=== PATIENT | female | born 1950 | race Two or more races ===

== ENCOUNTER 2021-01-26 19:51 | Emergency (ER) | payer OTHER ==
[~2021-01-26] VITALS: Ht 154.9 cm; Wt 62.6 kg
[2021-01-26] MEDS ORDERED: BACLOFEN5 GM (20:37)
[2021-01-26] MEDS ORDERED: BUTALB-ASPIRIN1 EACH (20:37)
[2021-01-26] MEDS ORDERED: ALENDRONATE SODI5 MG (20:37)
[2021-01-26] MEDS ORDERED: XOLEGEL45 GM (20:38)
[2021-01-26] MEDS ORDERED: GRALISE600 MG (20:38)
[2021-01-26] MEDS ORDERED: LASIX20 MG (20:38)
[2021-01-26] MEDS ORDERED: CALCIPOTRIENE60 GM (20:38)
[2021-01-26] MEDS ORDERED: GLIMEPIRIDE1 M1 (20:38)
[2021-01-26] MEDS ORDERED: ZANTAC25 MG/1 ML (20:39)
[2021-01-26] MEDS ORDERED: TIROSINT13 MCG (20:39)
[2021-01-26] MEDS ORDERED: ZESTRIL2.5 MG (20:39)
[2021-01-26] MEDS ORDERED: ROSADAN45 G1 (20:39)
[2021-01-26] MEDS ORDERED: METFORMIN HCL500 MG (20:39)
[2021-01-26] MEDS ORDERED: ACID REDUCER20 M1 (20:39)
[2021-01-26] MEDS ORDERED: ULTRAM50 MG (20:40)
[2021-01-27] MEDS ORDERED: PEPCID AC20 MG PO (00:50)
[2021-01-27] MEDS ORDERED: OMEPRAZOLE MAGN20 MG PO (00:50)
== END 2021-01-27 01:43 | disposition home or self-care (01) ==
LOC: ER 19:51
DX: G43.909 Migraine, unspecified, not intractable, without status migrainosus (principal); K30 Functional dyspepsia; I10 Essential (primary) hypertension